=== PATIENT | male | born 1985 | race American Indian/Alaskan Native ===

== ENCOUNTER 2017-03-20 14:38 | Emergency (ER) | payer OTHER ==
[2017-03-20 15:01] VITALS: BP 134/79; PULSE 80; RESP 16; TEMP 98.2; O2SAT 100
--- NOTE | 2017-03-20 15:19 | ED PDOC ---
HPI: CCC, URI, Sore Throat Time Seen by Provider: 03/20/17 15:15 Chief Complaint (Nursing): Flu-like Symptoms Chief Complaint (Provider): Cough/Rhinorrhea/sore throat History Per: Patient History/Exam Limitations: no limitations Have you had recent travel within the past 21 days to any of the following countries: [place], [place], [place] or [place]?: No Onset/Duration Of Symptoms: Days (x4) Current Symptoms Are (Timing): Still Present Associated Symptoms: Sore Throat, Cough, Sputum (small amount of phlegm, usually only in management professionals), Sinus Drainage (w/sneezing), Nausea (mild). denies: Fever, Vomiting, Other (no chest pain or shortness of breath) Additional Complaint(s): Elise Chase is a 31 year old male, with no pertinent past medical history , who presents to the ED on 03/20/17 for the evaluation of a cough that he has experienced x4 days. Cough, further described as mildly productive of phlegm ( usually only in management professionals), has also been accompanied by some associated rhinorrhea, sneezing, sore throat and a mild amount of nausea. Though he denies fever, chest pain, shortness of breath, vomiting or recent travel, sick contacts include the patient's son who was recently diagnose with Influenza. PMD: none Past Medical History Reviewed: Historical Data, Nursing Documentation, Vital Signs Vital Signs: Last Vital Signs Temp 98.2 F 03/20/17 14:57 Pulse 80 03/20/17 14:57 Resp 16 03/20/17 14:57 BP 134/79 03/20/17 14:57 Pulse Ox 100 03/20/17 15:48 - Medical History PMH: Back Problems - Surgical History Surgical History: No Surg Hx - Family History Family History: States: No Known Family Hx - Living Arrangements Living Arrangements: With Family - Social History Current smoker - smoking cessation education provided: Yes (vaping) Alcohol: Social Drugs: Denies - Home Medications Home Medications: Ambulatory Orders Medication Instructions Recorded Ondansetron [Zofran Odt] 4 mg PO ASDIR PRN #20 odt 01/31/17 Benzonatate 200 mg PO TID PRN #20 capsule 03/20/17 Oseltamivir Phosphate [Tamiflu] 75 mg PO BID #10 capsule 03/20/17 - Allergies Allergies/Adverse Reactions: Allergies Allergy/AdvReac Type Severity Reaction Status Date / Time No Known Allergies Allergy Verified 03/20/17 14:57 Review of Systems ROS Statement: Except As Marked, All Systems Reviewed And Found Negative Constitutional: Negative for: Fever ENT: Positive for: Nose Discharge (w/sneezing), Throat Pain Cardiovascular: Negative for: Chest Pain Respiratory: Positive for: Cough, Sputum (small amount of phlegm, usually during management professionals only) Gastrointestinal: Positive for: Nausea (mild). Negative for: Vomiting Neurological: Negative for: Headache, Dizziness Physical Exam - Reviewed Nursing Documentation Reviewed: Yes Vital Signs Reviewed: Yes - Physical Exam Appears: Positive for: Non-toxic, No Acute Distress Head Exam: Positive for: ATRAUMATIC, NORMOCEPHALIC Skin: Positive for: Normal Color, Warm, Dry Eye Exam: Positive for: Normal appearance, PERRL ENT: Positive for: TM Is/Are (normal b/l), Other (mild b/l tonsilar erythema). Negative for: Pharyngeal Erythema, Tonsillar Exudate Neck: Positive for: Normal, Painless ROM, Supple Cardiovascular/Chest: Positive for: Regular Rate, Rhythm. Negative for: Murmur Respiratory: Positive for: Normal Breath Sounds. Negative for: Respiratory Distress Lymphatic: Negative for: Adenopathy (no cervical lymphadenopathy) Neurologic/Psych: Positive for: Alert, Oriented - ECG O2 Sat by Pulse Oximetry: 100 (RA) Pulse Ox Interpretation: Normal - Other Rad CXR X-Ray: Interpreted by Me, Viewed By Me X-Ray Interpretation: no infiltrate Medical Decision Making Medical Decision Makin:15 Initial Impression: URI symptoms, recent exposure to son who was diagnosed with influenza. Patient has declined offered analgesics. Initial Plan: * CXR * Rapid Strep * Throat Culture * Reevaluation Rapid strep is negative, throat culture was sent. Patient recently exposed to his son who was diagnosed with influenza. Will treat with rx for Tamiflu and Tessalon Perles. Advised Advil for body aches, rest and fluids. Patient was instructed to follow up with primary doctor in 2-3 days. Scribe Attestation: Documented by Blanca Hunter, acting as a scribe for Cecilia Henson PA-C. Provider Scribe Attestation: All medical record entries made by the Scribe were at my direction and personally dictated by me. I have reviewed the chart and agree that the record accurately reflects my personal performance of the history, physical exam, medical decision making, and the department course for this patient. I have also personally directed, reviewed, and agree with the discharge instructions and disposition. Disposition - Clinical Impression Clinical Impression: Influenza-like symptoms - Patient ED Disposition Is Patient to be Admitted: No Counseled Patient/Family Regarding: Studies Performed, Diagnosis, Need For Followup, Rx Given - Disposition Referrals: [facility] [Provider Group] Disposition: Routine/Home Disposition Time: 16:56 Condition: STABLE Additional Instructions: Take prescription meds as directed. Take [id number] Tylenol or Advil for body aches. Rest and gentle and deep fluids. Follow-up with primary doctor or clinic in 2-3 days. Prescriptions: Benzonatate 200 mg PO TID PRN #20 capsule PRN Reason: Cough Oseltamivir Phosphate [Tamiflu] 75 mg PO BID #10 capsule Instructions: Upper Respiratory Infection (ED)
--- NOTE | 2017-03-20 15:52 | RAD ---
HISTORY: cough COMPARISON: No prior. TECHNIQUE: Chest PA and lateral FINDINGS: LUNGS: No active pulmonary disease. PLEURA: No significant pleural effusion identified. No pneumothorax apparent. CARDIOVASCULAR: Normal. OSSEOUS STRUCTURES: No significant abnormalities. VISUALIZED UPPER ABDOMEN: Normal. OTHER FINDINGS: None. IMPRESSION: No radiographic evidence of pneumonia.
== END 2017-03-20 17:32 | disposition home or self-care (01) ==
LOC: H.ER 14:38
DX: R05 Cough (principal); J02.9 Acute pharyngitis, unspecified; F17.200 Nicotine dependence, unspecified, uncomplicated